=== PATIENT | female | born 1990 | race American Indian/Alaskan Native ===

== ENCOUNTER 2020-02-15 01:29 | Emergency (ER) | payer MEDICAID ==
[2020-02-15 01:58] VITALS: BP 123/90
[2020-02-15] MEDS ORDERED: ACETAMINOPHEN 325 MG TAB PO ONE (02:55)
[2020-02-15 03:06] LABS: Basophils % (Auto) 0.6 % (0.0-1.8); Eosinophils % (Auto) 0.1 % (0.0-4.3); Hematocrit 39.4 % (30.3-42.9); Hemoglobin 13.3 gm/dl (10.1-14.3); Lymphocytes # (Auto) 1.3 K/mm3 (1.2-5.4); Lymphocytes % (Auto) 17.6 % (13.4-35.0); Mean Corpuscular HGB Conc 34 % (30-34); Mean Corpuscular Volume 83 fl (79-97); Monocytes # (Auto) 1.1 K/mm3 (0.0-0.8); Monocytes % (Auto) 14.2 % (0.0-7.3); Platelet Count 367 K/mm3 (140-440); Red Blood Count 4.73 M/mm3 (3.65-5.03); Red Cell Distribution Width 14.4 % (13.2-15.2)
[2020-02-15 03:20] LABS: Alanine Aminotransferase 15 units/L (7-56); Albumin 4.5 g/dL (3.9-5); BUN/Creatinine Ratio 10; Blood Urea Nitrogen 9 mg/dL (7-17); Calcium 9.7 mg/dL (8.4-10.2); Hemolysis Index 3
[2020-02-15] MEDS ORDERED: HYDROmorphone 1 MG/1 ML INJ IV ONE (05:06)
[2020-02-15] MEDS ORDERED: ONDANSETRON 4 MG/2 ML INJ IV ONE ×2 (05:06→07:16)
[2020-02-15] MEDS ORDERED: SODIUM CHLORIDE 0.9% 1000 ML 1,000 ML IV ONE (05:06)
--- NOTE | 2020-02-15 05:21 | Emergency Department Report ---
<CANDIDA LEON - Last Filed: 02/15/20 06:13> ED Abdominal Pain HPI - General Chief Complaint: Abdominal Pain Stated Complaint: ABD PAIN Time Seen by Provider: 02/15/20 05:06 Source: patient Mode of arrival: Ambulatory Limitations: No Limitations - History of Present Illness Initial Comments: 29-year-old -[place] female presents to the emergency room for right epigastric abdominal pain with nausea and vomiting all day yesterday. Patient reports her last menstrual period was 02/13/2020. Patient complains of chills and hot. She reports has a history of gallstones. She takes no medications on a daily basis has no known drug allergies. She denies any fever, shortness of breath or chest pain MD Complaint: abdominal pain Onset/Timin -: days(s) Location: RUQ Severity scale (0 -10): 7 Quality: stabbing, aching, sharp Consistency: constant Improves With: nothing Worsens With: nothing Associated Symptoms: nausea, vomiting - Related Data LMP Date: 02/12/20 Previous Rx's Medication Instructions Recorded Last Taken Type Metoclopramide [Reglan TAB] 10 mg PO TID #30 tab 02/15/20 Unknown Rx Allergies Allergy/AdvReac Type Severity Reaction Status Date / Time No Known Allergies Allergy Verified 12/21/19 23:59 ED Review of Systems Comment: All other systems reviewed and negative ED Past Medical Hx - Past Medical History Previous Medical History?: No - Surgical History Additional Surgical History: nose - Social History Smoking Status: Never Smoker Substance Use Type: None - Medications Home Medications: Home Medications Medication Instructions Recorded Confirmed Last Taken Type Metoclopramide [Reglan TAB] 10 mg PO TID #30 tab 02/15/20 Unknown Rx ED Physical Exam - General Limitations: No Limitations General appearance: alert, in distress, other (Vomiting) - Head Head exam: Present: atraumatic, normocephalic - Eye Eye exam: Present: normal appearance - ENT ENT exam: Present: mucous membranes moist - Neck Neck exam: Present: normal inspection, full ROM - Cardiovascular Cardiovascular Exam: Present: tachycardia - GI/Abdominal GI/Abdominal exam: Present: soft, tenderness, guarding, normal bowel sounds - Extremities Exam Extremities exam: Present: normal inspection, full ROM - Back Exam Back exam: Present: normal inspection, full ROM - Neurological Exam Neurological exam: Present: alert, oriented X3 - Psychiatric Psychiatric exam: Present: normal affect, normal mood - Skin Skin exam: Present: warm, dry, intact, normal color. Absent: rash ED Medical Decision Making - Lab Data Result diagrams: 02/15/20 02:47 02/15/20 02:47 Laboratory Tests 02/15/20 02/15/20 02/15/20 02:47 02:47 02:56 WBC 7.4 RBC 4.73 Hgb 13.3 Hct 39.4 MCV 83 MCH 28 MCHC 34 RDW 14.4 Plt Count 367 Lymph % (Auto) 17.6 [place] % (Auto) 14.2 H Eos % (Auto) 0.1 Baso % (Auto) 0.6 Lymph # 1.3 [place] # 1.1 H Eos # 0.0 Baso # 0.0 Seg Neutrophils % 67.5 Seg Neutrophils # 5.0 Sodium 137 Potassium 3.2 L Chloride 95.4 L Carbon Dioxide 26 Anion Gap 19 BUN 9 Creatinine 0.9 Estimated GFR > 60 BUN/Creatinine Ratio 10 Glucose 109 H Calcium 9.7 Total Bilirubin 0.60 AST 20 ALT 15 Alkaline Phosphatase 79 Total Protein 7.8 Albumin 4.5 Albumin/Globulin Ratio 1.4 HCG, Qual Negative - Radiology Data Radiology results: report reviewed CANDIDA LEONPatient Name:FELICIA PARRISHatient ID:[id number] of :[id number]:FemaleAccession:[id number] Date:[id number] Status:[place] [address] Cat Scan Report Signed Patient: FELICIA HUA MR#: [id number] : 1990 Acct:[id number] Age/Sex: 29 / F ADM Date: 02/15/20 Loc: ED Attending Dr: Ordering Physician: TIO CHIN Date of Service: 02/15/20 Procedure(s): CT abdomen pelvis w con Accession Number(s): [id number] cc: TIO CHIN CT abdomen pelvis w con INDICATION: Patient complains of acute abd pain with vomiting. TECHNIQUE: All CT scans at this location are performed using the following dose modulation technique: Automated exposure control. CONTRAST: Omnipaque 300, 100 cc IV injection. COMPARISON: None available. CT ABDOMEN: The parenchymal organs are unremarkable in appearance. Negative for abdominal mass, fluid or inflammation. The bowel is not dilated or thickened. Status post previous cholecystectomy. Mild prominence of the bile duct is likely on this basis. CT PELVIS: Negative for distal ureteral stone, pelvic fluid collection or inflammation. IMPRESSION: Negative for obstruction or localized inflammation. Signer Name: Tono Lucero MD Signed: 02/15/2020 6:13 AM Workstation Name: [id number] Transcribed By: ES Dictated By: Tono Lucero MD Electronically Authenticated By: Tono Lucero MD Signed Date/Time: 02/15/20612 DD/ 8 TD/TT: - Medical Decision Making 29-year-old -Sy[place] female presents to the emergency room for right epigastric abdominal pain with nausea and vomiting all day yesterday. Patient reports her last menstrual period was 02/13/2020. Patient complains of chills and hot. She reports has a history of gallstones. She takes no medications on a daily basis has no known drug allergies. She denies any fever, shortness of breath or chest pain. CT with contrast abdominal and pelvis concern for cholecystitis, Dilaudid 0.5 mg IV, normal saline 1 L IV and Zofran 4 mg IV.. ED Disposition Disposition: DC-01 TO HOME OR SELFCARE Is pt being admited?: No Does the pt Need Aspirin: No Condition: Stable Instructions: Obesity (ED), Abdominal Pain (ED) Additional Instructions: CT scan is negative for any acute findings. Take Reglan as needed for nausea and vomiting follow-up with a ambulatory services representative. Prescriptions: Metoclopramide [Reglan TAB] 10 mg PO TID #30 tab Referrals: PRIMARY [facility]EM[facility] [Primary Care Provider] - 3-5 Days [facility] [Provider Group] - 3-5 Days Forms: Work/School Release Form(ED) <JLUIS GAONA - Last Filed: 02/15/20 19:12> ED Review of Systems ROS: Stated complaint: ABD PAIN Other details as noted in HPI ED Course Vital Signs 02/15/20 02/15/20 02/15/20 01:47 05:10 05:14 Temperature 98.0 F Pulse Rate 104 H Respiratory 20 18 18 Rate Blood Pressure 123/90 O2 Sat by Pulse 99 Oximetry 02/15/20 05:44 Temperature Pulse Rate Respiratory 18 Rate Blood Pressure O2 Sat by Pulse Oximetry ED Medical Decision Making - Lab Data Result diagrams: 02/15/20 02:47 02/15/20 02:47 - Medical Decision Making 0730 -- Patient was seen and evaluated by night midlevel. Pt already had full work up and was discharged but nurse reported to me that when patient woke up she vomitted x 1 and is now complaining of nausea. I reviewed patient labs/CT report - lipase missing but otherwise w/u unremarkable. Lipase was ordered and zofran IV given. PAtient the started crying, and nurse came to get me. Pt stated that she is still very nauseous, she has been dealing with these symptoms for a while and has been in and out of hospitals for similar. She states she just wants help. She stated she was no longer has abdominal pain, its just the nauseous and she noticed blood in when she vomitted (emesis noted on towel on floor without obvious blood). Her abdominal exam was soft and non tender. reviewed results with pt again, w/u was nl, inlcuiding nl lipase. Informed her that her next step in is following up with GI for endoscope. Stressed to her the importance of f/u. Informed patient that I will give her something else for nausea and then re-eval her . Compazine IM was ordered for patient. When I went re-evaluate her, the room was empty. Nurse reported she had left after the medication. Critical care attestation.: If time is entered above; I have spent that time in minutes in the direct care of this critically ill patient, excluding procedure time.
--- NOTE | 2020-02-15 06:18 | Cat Scan Report ---
CT abdomen pelvis w con INDICATION: Patient complains of acute abd pain with vomiting. TECHNIQUE: All CT scans at this location are performed using the following dose modulation technique: Automated exposure control. CONTRAST: Omnipaque 300, 100 cc IV injection. COMPARISON: None available. CT ABDOMEN: The parenchymal organs are unremarkable in appearance. Negative for abdominal mass, fluid or inflammation. The bowel is not dilated or thickened. Status post previous cholecystectomy. Mild prominence of the bile duct is likely on this basis. CT PELVIS: Negative for distal ureteral stone, pelvic fluid collection or inflammation. IMPRESSION: Negative for obstruction or localized inflammation. Signer Name: Tono Lucero MD Signed: 02/15/2020 6:13 AM Workstation Name: [id number]
[2020-02-15] MEDS ORDERED: ONDANSETRON 4 MG ODT TAB PO ONE (07:26)
[2020-02-15] MEDS ORDERED: ONDANSETRON 4 MG ODT TAB ONE (07:26)
[2020-02-15] MEDS ORDERED: PROCHLORPERAZINE EDISYLATE 10 MG/2 ML VIAL IM ONE (09:00)
[2020-02-15 09:35] LABS: Bilirubin,Urine NEG (Negative); Blood,Urine MOD (Negative); Color,Urine Yellow (Yellow); Mucus,Urine FEW /HPF; Protein,Urine <15 mg/dL mg/dL (Negative); Urobilinogen,Urine < 2.0 mg/dL (<2.0)
== END 2020-02-15 09:43 | disposition home or self-care (01) ==
LOC: ED 01:29
DX: R10.13 Epigastric pain (principal); R11.2 Nausea with vomiting, unspecified; Z79.899 Other long term (current) drug therapy; Z98.890 Other specified postprocedural states
CPT/HCPCS: 36415; 74177; 80053; 81001; 83690; 84703; 85025; 96361; 96372; 96374; 96375; 99284; J0780; J1170; J2405; J7030; Q9967; Q0162